=== PATIENT | male | born 1990 ===

== ENCOUNTER 2024-11-23 22:27 | Emergency (ER) | payer OTHER ==
[~2024-11-23] VITALS: Ht 185.4 cm; Wt 67.0 kg
[2024-11-23 23:24] VITALS: BP 143/75; PULSE 58; RESP 16; TEMP 99.5; O2SAT 99
== END 2024-11-24 03:06 | disposition left against medical advice (07) ==
LOC: ER 22:29
DX: L23.7 Allergic contact dermatitis due to plants, except food (principal); Z53.21 Procedure and treatment not carried out due to patient leaving prior to being seen by health care provider